=== PATIENT | male | born 1980 | race Caucasian/White ===

== ENCOUNTER 2020-03-12 18:47 | Emergency (ER) | payer MEDICAID ==
[~2020-03-12] VITALS: Ht 180.3 cm; Wt 79.4 kg
[2020-03-12 18:39] VITALS: BP 148/89
--- NOTE | 2020-03-12 18:39 | NUR ---
ED Nurse Note: Patient RASHEL GARCIA from street c/o ETOH, unk amount. Per EMS, pt was seen lying in the bushes with an alcohol bottle beside him. Not in any distress. ERMD at bedside.
[~2020-03-12 18:47] MED LIST: NKM
--- NOTE | 2020-03-12 18:56 | Emergency Room Report ---
History of Present Illness General Chief Complaint: Alcohol Intoxication Source: Patient (Daryl Rubi M.D.) Present Illness HPI Disclaimer: Please note that this report is being documented using [employer] technology. This can lead to erroneous entry secondary to incorrect interpretation by the dictating instrument. HPI: 39-year-old male history of alcohol abuse presented for alcohol intoxication. Patient states he drinks daily. Presented by EMS. He denies any chest pain, shortness of breath, nausea or vomiting. PMH: Patient denies any past medical history PSH: Reviewed Social Hx: Denies smoking, drinks daily denies illicit drug use (Daryl Rubi M.D.) Allergies: Coded Allergies: PENICILLINS (Verified Allergy, Unknown, 07/14/15) COVID-19 Screening Contact w/high risk pt: No Recent Travel to affected area: No Experienced COVID-19 symptoms?: No COVID-19 Testing performed DATABASE MANAGEMENT SYSTEM SPECIALIST: No (Daryl Rubi M.D.) Patient History Reviewed Nursing Documentation: PMH: Agreed; PSxH: Agreed (Daryl Rubi M.D.) Review of Systems All Other Systems: negative except mentioned in HPI (Daryl Rubi M.D.) Physical Exam Vital Signs Date Time Temp Pulse Resp B/P (MAP) Pulse Ox O2 Delivery O2 Flow Rate FiO2 03/12/20 18:34 96.1 89 16 148/89 (108) 96 Room Air Sp02 EP Interpretation: reviewed, normal General Appearance: well appearing, no apparent distress Head: normocephalic, atraumatic Eyes: bilateral eye PERRL, bilateral eye EOMI ENT: hearing grossly normal, moist mucus membranes Neck: full range of motion, supple Respiratory: lungs clear, normal breath sounds, no rhonchi, no respiratory distress, no retraction, no wheezing Cardiovascular #1: normal peripheral pulses, regular rate, rhythm, no murmur Gastrointestinal: non tender, soft, non-distended, no guarding Neurologic: alert, oriented x3, no focal defects Skin: normal color, warm/dry (Daryl Rubi M.D.) Medical Decision Making Homeless Attestation Patient has been medically screened and is stable for outpatient follow up (Miguel Buckley MD) Diagnostic Impression: Primary Impression: Acute alcohol intoxication ER Course Patient presented due to alcohol intoxication. Patient in no acute distress on exam. Nontoxic-appearing. He was alert and oriented on arrival but did appear intoxicated. Patient was provided food, and will be observed until clinically sober. Patient will be signed out to oncoming physician to reassess patient for clinical sobriety. Plan to discharge home once clinically sober. (Daryl Rubi M.D.) ER Course Assumed care patient from previous provider approximately 10 PM Briefly this a 39-year-old male presenting to the ED for acute alcohol intoxication. He has been allowed to metabolize in the emergency department for over 10 hours. He is now awake, ambulating with a steady gait, asking for something to eat. Patient states he is homeless and requesting information on homeless shelters. Stable for outpatient follow-up. Will refer to substance abuse centers and provide information on homeless shelters. (Miguel Buckley MD) Last Vital Signs Date Time Temp Pulse Resp B/P (MAP) Pulse Ox O2 Delivery O2 Flow Rate FiO2 03/12/20 18:39 89 16 Room Air 03/12/20 18:39 96.1 148/89 96 (Daryl Rubi M.D.) Disposition: HOME, SELF-CARE Condition: Improved Signed Out To: Daryl Escalona M.D.) Daryl Rubi M.D. Mar 12, 2020 18:56 Miguel Buckley MD Mar 13, 2020 05:11
--- NOTE | 2020-03-12 19:08 | NUR ---
HAND-OFF: Report given to Mona GALVIN.
--- NOTE | 2020-03-12 19:15 | NUR ---
ED Nurse Note: RECIEVED REPORT TO RESUME CARE, PT LYING IN BED RESTING, APPEARS TO BE SLEEPING, AROUSES ONLY TO SEVERE TACTILE STIMULI, PT HAS STRONG ETOH ODOR NOTED, VERY DIRTY AND DISCHEVELED IN APPEARANCE, PT HAS MUD AND DIRT ON FACE AND BODY, PT HERE PENDING SOBER, WILL CONTINUE TO CLOSELY MONITOR FOR ANY CHANGES OR DISTRESS.
[2020-03-13] VITALS: BP 137/88
--- NOTE | 2020-03-13 | NUR ---
ED Nurse Note: Pt awakened in bed, defecated and urinated on self and on floor in room, pt is lethargic and drowsy, very apologetic and does not appear to be safely discharged, pt given bath and changed bed, also given clean, dry clothing, will allow more time to sober and safely discharge when pt awakens.
--- NOTE | 2020-03-13 03:00 | NUR ---
ED Nurse Note: Pt resting in bed quietly, arouses easily to verbal stimuli, pt ambulated to bathroom, tolerated well, denies pain or any distress, pt is homeless, will allow to sleep til am for discharge, pt also given juice, tolerated well, v/s stable, no sob or labored breathing, nad noted, will continue to monitor and prepare for discharge in am.
[2020-03-13 05:45] VITALS: BP 131/79
--- NOTE | 2020-03-13 06:15 | NUR ---
Homeless Discharge: Patient is being discharged from medical care. Awake, alert and oriented x3. After care instructions, including referral to community resources were given. Patient verbalized understanding of After care instructions; at this time patient does not request medications, equipment or placement. Patient signed patient consent in the medical record for patient destination upon discharge. All medical devices such as IV and ID band were removed. Patient ambulated out with all personal belongings with steady gait.
[2020-03-13 06:20] VITALS: BP 131/79
== END 2020-03-13 06:20 | disposition home or self-care (01) ==
LOC: EDBD 18:47 → EMR 19:00
DX: F10.29 Alcohol dependence with unspecified alcohol-induced disorder (principal); Z88.0 Allergy status to penicillin
CPT/HCPCS: 99283